=== PATIENT | male | born 1990 | race Caucasian/White ===

== ENCOUNTER 2016-04-25 07:17 | Emergency (ER) | payer OTHER ==
--- NOTE | 2016-04-25 08:07 | EDPHY ---
[id number] [id number] CHIEF COMPLAINT: "I guess this is my first full-blown experience with frostbite " HISTORY OF PRESENT ILLNESS: The patient is a 25 y/o male complaining of bilateral hand pain and redness he attributes to cold exposure over the last 36 hours. He says he was shoveling snow for work yesterday and the previous night and was outside for extended periods of time. He was wearing gloves but this is his first winter in [place] and is unsure how to manage his symptoms. He complains specifically of redness, pain, dryness, and tingling to both hands. He has not tried anything for pain other than marijuana and is specifically requesting narcotics. He denies pertinent medical history. Source: Patient - Personal History Current Tetanus/Diphtheria Vaccine: Yes Current Tetanus Diphtheria and Acellular Pertussis (TDAP): Yes - Medical/Surgical History PMH: Denies. Tetanus up-to-date. Hx Asthma: No Hx Chronic Respiratory Disease: No Hx Diabetes: No Hx Cardiac Disease: No Hx Renal Disease: No Hx Cirrhosis: No Hx Alcoholism: No Hx HIV/AIDS: No Hx Splenectomy or Spleen Trauma: No Other PMH: DENIES - Social History Smoking Status: Current every day smoker Additional Social History: From [place]. Smoker. - Physical Exam Exam: General Appearance: Alert, pleasant Skin/ext: Bilateral erythema to dorsal aspect of hands without blistering, tiny abrasions on the right 2nd/3rd MCP's; digit/wrist ROM without pain Vascular: Brisk capillary refill in both hands. Radial pulses 2+ bilaterally. Neurological: motor/sensory intact Psychiatric: Mood and affect normal Constitutional: Initial Vital Signs Temperature (C) 36.6 C 04/25/16 07:20 Heart Rate 104 H 04/25/16 07:20 Respiratory Rate 18 04/25/16 07:20 Blood Pressure 125/75 H 04/25/16 07:20 O2 Sat (%) 94 04/25/16 07:20 O2 Delivery Mode Room Air Allergies/Adverse Reactions: ketorolac tromethamine [From Toradol] Allergy (Verified 11/04/15 05:50) Home Medications: Medication Instructions Recorded Hydrocodone/APAP 5/325 [Tad 1 - 2 tab PO Q4H PRN #6 tab 04/25/16 5/325] Medical Decision Making ED Course/Re-evaluation: This is a healthy 25 y/o male presenting with pain and redness to both hands after shoveling snow in below freezing temperatures over the last 36 hours. He has bilateral hand erythema without blistering or evidence of advanced frostbite. He is neurovascularly intact. He is specifically requesting narcotics for pain relief. I've advised him to use OTC remedies for symptoms and counseled him on frostbite prevention and reinjury. He will receive a small script for Tad and was advised he will not receive narcotic refills from the ED. He's been referred to [facility] and our outpatient doctor for follow up. He agrees with this plan. - Data Points Medications Given: Discontinued Medications Acetaminophen (Tylenol) 650 mg PO EDNOW ONE Stop: 04/25/16 08:10 Last Admin: 04/25/16 08:22 Dose: 650 mg Departure - Departure Disposition: Home, Routine, Self-Care Clinical Impression: Frostbite of both hands Condition: Good Instructions: Frostbite (ED) Additional Instructions: 1. Keep extremities properly covered in the cold. Mittens work better than gloves. Avoid re-exposure to cold until your hands are healed. 2. You can try applying aloe vera and ice packs to both hands for symptom relief. 3. Use Tylenol as directed on the packaging as needed for pain. Not to exceed 1 week of use. 4. You've been given a small script of Tad to use for pain not controlled by Tylenol. Be advised the ED will not refill any narcotic prescriptions. 5. Follow up with a primary care provider for ongoing symptoms and to establish care. You've been referred to [facility] and our on-call outpatient doctor. Referrals: [facility] [Outside] - As per Instructions Reymundo Parker, [Medical Doctor] - As per Instructions Prescriptions: Hydrocodone/APAP 5/325 [Tad 5/325] 1 - 2 tab PO Q4H PRN #6 tab PRN Reason: Pain, Moderate Report Scribed for: Chelsey Bedolla Report Scribed by: Wendy Hopson Date of Report: 04/25/16 Time of Report: 07:24 Physician Review and Approval Statement: 04/25/16 07:24 Portions of this note were transcribed by a medical records tech. I personally performed a history, physical exam, medical decision making, and confirmed accuracy of information the transcribed note.
[2016-04-25] MEDS ORDERED: ACETAMINOPHEN 325 MG TAB PO ONE (08:09)
[2016-04-25 08:23] VITALS: BP 133/74; PULSE 82; RESP 16; TEMP 97.2; O2SAT 98
== END 2016-04-25 08:29 | disposition home or self-care (01) ==
LOC: EEVIPCON 07:17
DX: T33.521A Superficial frostbite of right hand, initial encounter (principal); T33.522A Superficial frostbite of left hand, initial encounter; F17.200 Nicotine dependence, unspecified, uncomplicated; X31.XXXA Exposure to excessive natural cold, initial encounter; Y92.89 Other specified places as the place of occurrence of the external cause; Y99.8 Other external cause status; Y93.89 Activity, other specified

== ENCOUNTER 2016-06-12 09:13 | Emergency (ER) | payer OTHER ==
--- NOTE | 2016-06-12 10:48 | EDPHY ---
H & P Stated Complaint: BRUSE TO BUTT AREA ...STILL BRUSED Time Seen by Provider: 06/12/16 09:29 HPI/ROS: Chief complaint: Bruise to the left buttock region History of present illness: This is a 25-year-old male who presents to the emergency department for evaluation of a bruise to his left buttock region. Patient reports 1 week ago while skateboarding he lost control and fell off onto his buttock region. He developed a large bruise. He states it has been persistent. He is concerned as it has been a week and he still has the bruising and it is still uncomfortable. He denies other associated signs or symptoms: No report of pain or trauma to other parts of the body, no paresthesias, no weakness or paralysis, no bowel or bladder dysfunction. Review of systems: A 10 point review of systems was obtained and other than described above was negative - Personal History Current Tetanus/Diphtheria Vaccine: Yes Current Tetanus Diphtheria and Acellular Pertussis (TDAP): Yes - Medical/Surgical History Hx Asthma: No Hx Chronic Respiratory Disease: No Hx Diabetes: No Hx Cardiac Disease: No Hx Renal Disease: No Hx Cirrhosis: No Hx Alcoholism: No Hx HIV/AIDS: No Hx Splenectomy or Spleen Trauma: No Other PMH: DENIES - Social History Smoking Status: Current every day smoker - Physical Exam Exam: General Appearance: Alert, nontoxic Eyes: PERRLA Respiratory: Lungs clear to auscultation bilaterally Cardiac: Regular rate and rhythm. Gastrointestinal: Soft, nondistended, nontender Neurological: Alert and oriented x4 Skin: Patient is a large hematoma to the left buttock region Musculoskeletal: Head is normocephalic, atraumatic. The spine is nontender to palpation along its entire length. Pelvis stable to palpation. Patient moving all extremities without difficulty. He is ambulating well. Constitutional: Initial Vital Signs Temperature (C) 36.8 C 06/12/16 09:20 Heart Rate 95 06/12/16 09:20 Respiratory Rate 18 06/12/16 09:20 Blood Pressure 123/61 H 06/12/16 09:20 O2 Sat (%) 95 06/12/16 09:20 O2 Delivery Mode Room Air Allergies/Adverse Reactions: ketorolac tromethamine [From Toradol] Allergy (Verified 06/12/16 09:22) Home Medications: Medication Instructions Recorded Hydrocodone/APAP 5/325 [[place] 1 tab PO Q6H #6 tab 06/12/16 5/325 (*)] Medical Decision Making - Diagnostics Imaging: Pelvis x-ray is negative ED Course/Re-evaluation: Patient seen under the supervision of my secondary supervising physician Dr. Hudson Torres. Patient presents to the emergency department for trauma to the left buttock. He has large hematoma. No evidence by history or physical exam of trauma to other parts of the body. Pelvis x-rays negative. No blood in the urine. Patient will be discharged home. Home care is discussed. He is to follow up with a primary care doctor for recheck. Return precautions are given. Patient voiced understanding and agreement with plan. Differential Diagnosis: Included but not limited to contusion, hematoma, bony fracture - Data Points Laboratory Results: 06/12/16 09:43 Urine Color YELLOW Urine Appearance CLEAR Urine pH 6.0 (5.0-7.5) Ur Specific [place] 1.026 (1.002-1.030) Urine Protein NEGATIVE (NEGATIVE) Urine Ketones NEGATIVE (NEGATIVE) Urine Blood NEGATIVE (NEGATIVE) Urine Nitrate NEGATIVE (NEGATIVE) Urine Bilirubin NEGATIVE (NEGATIVE) Urine Urobilinogen NEGATIVE EU EU (0.2-1.0) Ur Leukocyte Esterase NEGATIVE (NEGATIVE) Ur Culture Indicated? NOT INDICATED (NI) Urine Glucose NEGATIVE (NEGATIVE) Departure - Departure Disposition: Home, Routine, Self-Care Clinical Impression: Traumatic hematoma of buttock Qualifiers: Encounter type: initial encounter Qualified Code(s): S30.0XXA - Contusion of lower back and pelvis, initial encounter Condition: Good Instructions: Hematoma (ED) Additional Instructions: Follow-up with the primary care doctor for recheck Apply warm compresses to the injury multiple times daily Use ibuprofen 600 mg 3 times daily for the next 2-3 days In addition You have been prescribed [place] for pain. [place] contains Tylenol, do not take extra Tylenol/acetaminophen/Apap with it. It is sedating. If symptoms worsen or new symptoms develop return to the emergency department for recheck Referrals: NONE *PRIMARY CARE P,. [Primary Care Provider] - As per Instructions [facility],. [Clinic] - As per Instructions Gillian Espana MD [Medical Doctor] - As per Instructions Prescriptions: Hydrocodone/APAP 5/325 [[place] 5/325 (*)] 1 tab PO Q6H #6 tab
[2016-06-12 10:53] LABS: COLOR YELLOW; LEUKOCYTE ESTERASE,URINE NEGATIVE (NEGATIVE); NITRITE,URINE NEGATIVE (NEGATIVE)
[2016-06-12 11:11] VITALS: BP 129/74; PULSE 86; RESP 16; TEMP 98.6; O2SAT 96
== END 2016-06-12 11:12 | disposition home or self-care (01) ==
DX: S30.0XXA Contusion of lower back and pelvis, initial encounter (principal); F17.200 Nicotine dependence, unspecified, uncomplicated; V00.131A Fall from skateboard, initial encounter; Y99.8 Other external cause status; Y93.51 Activity, roller skating (inline) and skateboarding

== ENCOUNTER 2016-06-16 07:16 | Emergency (ER) | payer OTHER ==
[2016-06-16 07:23] VITALS: TEMP 97.7
[2016-06-16] MEDS ORDERED: OXYCODONE/APAP 5/325 TAB PO ONE (07:29)
--- NOTE | 2016-06-16 07:31 | EDPHY ---
H & P Stated Complaint: hematoma l buttock/painful is out of vicodan/seen last Time Seen by Provider: 06/16/16 07:24 - Personal History Current Tetanus/Diphtheria Vaccine: Yes - Medical/Surgical History Hx Asthma: No Hx Chronic Respiratory Disease: No Hx Diabetes: No Hx Cardiac Disease: No Hx Renal Disease: No Hx Cirrhosis: No Hx Alcoholism: No Hx HIV/AIDS: No Hx Splenectomy or Spleen Trauma: No Other PMH: DENIES - Social History Smoking Status: Current every day smoker Constitutional: Initial Vital Signs Temperature (C) 36.5 C 06/16/16 07:20 Heart Rate 83 06/16/16 07:20 Respiratory Rate 18 06/16/16 07:20 Blood Pressure 133/78 H 06/16/16 07:20 O2 Sat (%) 95 06/16/16 07:20 O2 Delivery Mode Room Air Allergies/Adverse Reactions: ketorolac tromethamine [From Toradol] Allergy (Verified 06/16/16 07:20) Home Medications: Medication Instructions Recorded Hydrocodone/APAP 5/325 [[place] 1 tab PO Q6H #6 tab 06/12/16 5/325 (*)] Cephalexin [Keflex (RX)] 500 mg PO TID #30 cap 06/16/16 oxyCODONE IR [Oxycodone Ir (*)] 5 - 10 mg PO Q6 PRN #20 tab 06/16/16 Medical Decision Making ED Course/Re-evaluation: CHIEF COMPLAINT: "I've got a hematoma on my butt" HISTORY OF PRESENT ILLNESS: The patient is a 25 y/o male complaining of a large hematoma on his left buttock secondary to a fall from his longboard 2 weeks ago. He was seen here on 06/12/16, 4 days ago, with the same complaint. A pelvis x-ray at that time was negative and he was discharged with Vicodin for pain. He returns today reporting that his pain has not improved nor has the size of the hematoma. He has used all his Vicodin and is concerned about continuing pain. He denies significant medical history; a review of his records shows he has been here previously for abscess drainage. REVIEW OF SYSTEMS: A 10 point review of systems was performed and is negative with the exception of the elements mentioned in the history of present illness. PHYSICAL EXAM: General Appearance: Alert, well hydrated, appropriate, and non-toxic appearing. Musculoskeletal: Normal active ROM of all extremities, atraumatic. Neurological: Alert, appropriate, and interactive. Skin: No rashes, good turgor, no nodules on palpation. Large tender and fluctuant mass consistent with hematoma on left buttock without evidence of infection - no erythema, warmth, or streaking. PAST MEDICAL HISTORY: Abscesses PAST SURGICAL HISTORY: Previous abscess drainage SOCIAL HISTORY: Smoker DIAGNOSTICS/PROCEDURES/CRITICAL CARE TIME: Ultrasound-guided drainage of hematoma performed by Dr. Ward, radiologist. DIFFERENTIAL DIAGNOSIS: The differential diagnosis for the patient's mass included but was not limited to hematoma, abscess, fracture, muscle contusion. MEDICAL DECISION MAKING: This is a healthy 25 y/o male presenting with a traumatic hematoma on his left buttock secondary to a fall 2 weeks ago. He was evaluated here a few days ago and received Vicodin for pain, which has been insufficient at controlling his pain. On exam, he has a large fluctuant mass on his left buttock without evidence of infection. Consulted with Dr. Ward, who will perform an ultrasound-guided needle aspiration of the hematoma. Aspiration was successful and drained approximately 160mL bloody fluid. Patient will be discharged with OxyIR and and prophylactic Keflex. He's been referred to a PCP for follow up if needed. He is comfortable with this plan. - Data Points Medications Given: Discontinued Medications Oxycodone/Acetaminophen (Percocet 5/325) 2 tab PO EDNOW ONE Stop: 06/16/16 07:30 Last Admin: 06/16/16 07:57 Dose: 2 tab Departure - Departure Disposition: Home, Routine, Self-Care Clinical Impression: Traumatic hematoma of buttock Qualifiers: Encounter type: initial encounter Qualified Code(s): S30.0XXA - Contusion of lower back and pelvis, initial encounter Condition: Good Instructions: Incision and Drainage (ED), Hematoma (ED) Additional Instructions: 1. Take 600mg ibuprofen every 6-8 hours as needed for pain and inflammation over the 4-7 days. 2. Use OxyIR as prescribed when needed for pain not controlled by ibuprofen. 3. Take Keflex as prescribed for infection prophylaxis. Be sure to complete the entire prescription. 4. Follow up with your primary care provider for symptoms not improved over the next week. 5. Return to the ED for severe pain, dramatic increase in redness or warmth, if red streaking appears around the site, if you develop fever, or other worsening of condition. Referrals: [facility],. [Clinic] - As per Instructions [facility],. [Clinic] - As per Instructions Prescriptions: Cephalexin [Keflex (RX)] 500 mg PO TID #30 cap oxyCODONE IR [Oxycodone Ir (*)] 5 - 10 mg PO Q6 PRN #20 tab PRN Reason: Pain, Severe
[2016-06-16] MEDS ORDERED: NA BICARBONATE 50 MEQ/50 ML VIAL ONE (08:53)
[2016-06-16] MEDS ORDERED: LIDOCAINE 1% 30 ML SDV ONE (08:53)
[2016-06-16 09:38] VITALS: BP 131/78; PULSE 78; RESP 16; O2SAT 96
== END 2016-06-16 09:38 | disposition home or self-care (01) ==
DX: S30.0XXD Contusion of lower back and pelvis, subsequent encounter (principal); F17.200 Nicotine dependence, unspecified, uncomplicated; V00.131D Fall from skateboard, subsequent encounter

== ENCOUNTER 2016-06-17 06:55 | Emergency (ER) | payer OTHER ==
[2016-06-17] MEDS ORDERED: NS 1,000 ML IV ONE ×2 (07:18→11:24)
[2016-06-17] MEDS ORDERED: HYDROmorphONE/DILAUDID 1 MG/ML SYR IVP ONE (07:18)
--- NOTE | 2016-06-17 07:23 | EDPHY ---
H & P Stated Complaint: Had hematoma drained yesterday, now flank pain, vomiting - Personal History Current Tetanus/Diphtheria Vaccine: Yes - Medical/Surgical History Hx Asthma: No Hx Chronic Respiratory Disease: No Hx Diabetes: No Hx Cardiac Disease: No Hx Renal Disease: No Hx Cirrhosis: No Hx Alcoholism: No Hx HIV/AIDS: No Hx Splenectomy or Spleen Trauma: No Other PMH: PSHx: DENIES. PMHx: denies - Social History Smoking Status: Current every day smoker Constitutional: Initial Vital Signs Temperature (C) 36.4 C 06/17/16 06:56 Heart Rate 97 06/17/16 06:56 Respiratory Rate 16 06/17/16 06:56 Blood Pressure 127/73 H 06/17/16 06:56 O2 Sat (%) 92 06/17/16 06:56 O2 Delivery Mode Room Air Allergies/Adverse Reactions: ketorolac tromethamine [From Toradol] Allergy (Verified 06/16/16 07:20) Home Medications: Medication Instructions Recorded Hydrocodone/APAP 5/325 [[place] 1 tab PO Q6H #6 tab 06/12/16 5/325 (*)] Cephalexin [Keflex (RX)] 500 mg PO TID #30 cap 06/16/16 oxyCODONE IR [Oxycodone Ir (*)] 5 - 10 mg PO Q6 PRN #20 tab 06/16/16 Medical Decision Making ED Course/Re-evaluation: CHIEF COMPLAINT: Flank pain, vomiting, weakness. HISTORY OF PRESENT ILLNESS: The patient is a 25-year-old male presenting with flank pain, vomiting, and weakness that began at 0500 this morning (2.5 hours). The flank pain radiates around to his groin. The vomit is described as reddish- brown. He was in the ED yesterday and had a large buttock hematoma drained that he received from a longboarding accident 10 days ago. He was discharged on Keflex and Oxycodone. He took 2 Oxycodone last night for pain but has not started the Keflex. Today he admits associated oliguria, bloody gums, and epistaxis earlier today. He has a history of similar symptoms years ago after a bout of flu. REVIEW OF SYSTEMS: A 10 point review of systems was performed and is negative with the exception of the elements mentioned in the history of present illness. PHYSICAL EXAM: HR, BP, O2 Sat, RR. Temp noted General Appearance: Alert, well hydrated, appropriate, and non-toxic appearing. Head: Atraumatic without scalp tenderness or obvious injury Eyes: Pupils equal, round, reactive to light and accommodation, EOMI, no trauma , no injection. Ears: Clear bilaterally, no perforation, normal landmarks Nose: Atraumatic, no rhinorrhea, clear. Throat: There is no erythema or exudates, no lesions, normal tonsils, mucus membranes moist. Neck: Supple, 2+ carotid upstroke, nontender, no lymphadenopathy. Respiratory: No retractions, no distress, no wheezes, and no accessory muscle use. Lungs are clear to auscultation bilaterally. Cardiovascular: Regular rate and rhythm, no murmurs, rubs, or gallops. Bilateral carotid, radial, dorsalis pedis, and posterior tibial pulses intact. Good capillary refill all extremities. Gastrointestinal: Abdomen is soft, non-distended, no masses, no rebound, no guarding, no peritoneal signs. Bilateral upper quadrant tenderness. Musculoskeletal: Normal active ROM of all extremities, atraumatic. Bilateral CVA tenderness. Neurological: Alert, appropriate, and interactive. The patient has normal DTRs and non-focal cranial nerves, motor, sensory, and cerebellar exam. Skin: No rashes, good turgor, no nodules on palpation. Past medical history:Abscess. Past surgical history:Abscess drainage. Family history:Non-contributory. Social history:Cigarette and marijuana smoker. DIAGNOSTICS/PROCEDURES/CRITICAL CARE TIME: Study: CT of the abdomen. Indication: Pain. Results: 1. There is a 7.3 x 1.3 x 9.2 cm seroma involving the subcutaneous tissues of the left buttock. 2. Features consistent with a small bowel enteritis. 3. Normal appearance of the retrocecal appendix. The study was read by the radiologist, Dr. Le. I viewed the images myself on the PACS system. DIFFERENTIAL DIAGNOSIS: The differential diagnosis for the patient's flank pain included but was not limited to musculoskeletal causes, kidney stone, pyelonephritis, shingles, diverticulitis, vasculitis, appendicitis, and aortic aneurysm. MEDICAL DECISION MAKIN-year-old male presents with lateral abdominal pain. I saw this patient yesterday and drained a large hematoma on his buttock that he received while longboarding. I discharged him home with Keflex and Oxycodone. He presents today with pain that is lateral to his flanks. I will rule out vomiting due to medication reaction. An IV was established and labs ordered. 1L IV saline administered for hydration along with 0.5mg IV Dilaudid for pain. On exam he is quite tender in the abdomen so an abdominal CT was ordered. Despite bloody gums and epistaxis, the patient's CBC shows only a small left shift. WBC mildly elevated at 13. I think this most likely represents overlying gastroenteritis and dehydration. 0920: CT reported to me by Dr. Le as enteritis. 1111: Patient still nauseated and in pain. Phenergan 12.5mg IV administered. - Data Points Laboratory Results: Laboratory Results 06/17/16 07:30 06/17/16 07:30 06/17/16 06/17/16 06/17/16 07:30 07:30 07:00 WBC 13.11 10^3/uL H 10^3/uL (3.80-9.50) RBC 4.74 10^6/uL 10^6/uL (4.40-6.38) Hgb 15.5 g/dL g/dL (13.7-17.5) Hct 44.9 % % (40.0-51.0) MCV 94.7 fL fL (81.5-99.8) MCH 32.7 pg pg (27.9-34.1) MCHC 34.5 g/dL g/dL (32.4-36.7) RDW 14.2 % % (11.5-15.2) Plt Count 365 10^3/uL 10^3/uL (150-400) MPV 9.6 fL fL (8.7-11.7) Neut % (Auto) 83.0 % H % (39.3-74.2) Lymph % (Auto) 10.5 % L % (15.0-45.0) [place] % (Auto) 5.2 % % (4.5-13.0) Eos % (Auto) 0.5 % L % (0.6-7.6) Baso % (Auto) 0.5 % % (0.3-1.7) Nucleat RBC Rel Count 0.0 % % (0.0-0.2) Absolute Neuts (auto) 10.87 10^3/uL H 10^3/uL (1.70-6.50) Absolute Lymphs (auto) 1.38 10^3/uL 10^3/uL (1.00-3.00) Absolute Monos (auto) 0.68 10^3/uL 10^3/uL (0.30-0.80) Absolute Eos (auto) 0.07 10^3/uL 10^3/uL (0.03-0.40) Absolute Basos (auto) 0.07 10^3/uL 10^3/uL (0.02-0.10) Absolute Nucleated RBC 0.00 10^3/uL 10^3/uL (0-0.01) Immature Gran % 0.3 % % (0.0-1.1) Immature Gran # 0.04 10^3/uL 10^3/uL (0.00-0.10) Sodium 143 mEq/L mEq/L (134-144) Potassium 4.5 mEq/L mEq/L (3.5-5.2) Chloride 108 mEq/L mEq/L (97-110) Carbon Dioxide 22 mEq/l mEq/l (22-31) Anion Gap 13 mEq/L mEq/L (8-16) BUN 14 mg/dL mg/dL (7-23) Creatinine 0.7 mg/dL mg/dL (0.7-1.3) Estimated GFR > 60 Glucose 90 mg/dL mg/dL (70-100) Calcium 9.4 mg/dL mg/dL (8.5-10.4) Total Bilirubin 0.5 mg/dL mg/dL (0.1-1.4) Conjugated Bilirubin 0.3 mg/dL mg/dL (0.0-0.5) Unconjugated Bilirubin 0.2 mg/dL mg/dL (0.0-1.1) AST 21 IU/L IU/L (17-59) ALT 31 IU/L IU/L (21-72) Alkaline Phosphatase 68 IU/L IU/L (38-126) Total Protein 7.4 g/dL g/dL (6.3-8.2) Albumin 4.2 g/dL g/dL (3.5-5.0) Lipase 68.0 IU/L IU/L (23-300) Urine Color YELLOW Urine Appearance CLEAR Urine pH 6.0 (5.0-7.5) Ur Specific [place] 1.017 (1.002-1.030) Urine Protein NEGATIVE (NEGATIVE) Urine Ketones NEGATIVE (NEGATIVE) Urine Blood NEGATIVE (NEGATIVE) Urine Nitrate NEGATIVE (NEGATIVE) Urine Bilirubin NEGATIVE (NEGATIVE) Urine Urobilinogen NEGATIVE EU EU (0.2-1.0) Ur Leukocyte Esterase NEGATIVE (NEGATIVE) Ur Culture Indicated? NOT INDICATED (NI) Urine Glucose NEGATIVE (NEGATIVE) Medications Given: Discontinued Medications Hydromorphone HCl (Dilaudid) 0.5 mg IVP EDNOW ONE Stop: 06/17/16 07:19 Last Admin: 06/17/16 07:50 Dose: 0.5 mg Sodium Chloride (Ns) 1,000 mls @ 0 mls/hr IV ONCE ONE PRN Reason: Wide Open Stop: 06/17/16 07:19 Last Admin: 06/17/16 07:50 Dose: 1,000 mls Sodium Chloride (Ns) 1,000 mls @ 0 mls/hr IV ONCE ONE PRN Reason: Wide Open Stop: 06/17/16 11:25 Last Admin: 06/17/16 11:31 Dose: 1,000 mls Ondansetron HCl (Zofran) 4 mg IVP EDNOW ONE Stop: 06/17/16 07:43 Last Admin: 06/17/16 07:51 Dose: 4 mg Ondansetron HCl (Zofran Odt 4 Mg Prepack#2) 1 btl TAKEHOME EDNOW ONE Stop: 06/17/16 12:39 Last Admin: 06/17/16 12:54 Dose: 1 btl Promethazine HCl (Phenergan) 12.5 mg IVP ONCE ONE Stop: 06/17/16 11:25 Last Admin: 06/17/16 11:32 Dose: 12.5 mg Departure - Departure Disposition: Home, Routine, Self-Care Clinical Impression: Gastroenteritis Condition: Good Instructions: Ondansetron (By mouth), Gastroenteritis (ED) Additional Instructions: Drink only clear fluids for the next 24 hours. Increase diet as tolerable. Follow up with your primary care provider in the next 3-4 days if symptoms are not improving. If you need a primary care provider you have been given the telephone number of the on-call primary care provider. Return to the emergency department if you experience any serious worsening of condition. Referrals: Cheyenne Maza MD [Medical Doctor] - As per Instructions Report Scribed for: Rey Patterson Report Scribed by: Saman Fernandez Date of Report: 06/17/16 Time of Report: 07:23
[2016-06-17 07:39] LABS: % IMMATURE GRANULYOCYTES 0.3 % (0.0-1.1); ABSOLUTE IMMATURE GRANULOCYTES 0.04 10^3/uL (0.00-0.10); ADD DIFF? NO; ADD MORPH? NO; ADD SCAN? NO; ATYPICAL LYMPHOCYTE FLAG 10 (0-99); FRAGMENT RBC FLAG 0 (0-99); HEMATOCRIT 44.9 % (40.0-51.0); HEMOGLOBIN 15.5 g/dL (13.7-17.5); LEFT SHIFT FLG 0 (0-99); LIPEMIA HEMOLYSIS FLAG 90 (0-99); MEAN CELL HEMOGLOBIN 32.7 pg (27.9-34.1); MEAN CELL HEMOGLOBIN CONCENTR. 34.5 g/dL (32.4-36.7); MEAN CELL VOLUME 94.7 fL (81.5-99.8); MEAN PLATELET VOLUME 9.6 fL (8.7-11.7); PLATELET CLUMPS FLAG 10 (0-99); PLATELET COUNT 365 10^3/uL (150-400); RED BLOOD CELL COUNT 4.74 10^6/uL (4.40-6.38); RED CELL DISTRIBUTION WIDTH 14.2 % (11.5-15.2)
[2016-06-17 07:41] LABS: COLOR YELLOW; LEUKOCYTE ESTERASE,URINE NEGATIVE (NEGATIVE); NITRITE,URINE NEGATIVE (NEGATIVE)
[2016-06-17] MEDS ORDERED: ONDANSETRON 4 MG/2 ML VIAL IVP ONE (07:42)
[2016-06-17 08:03] LABS: ALANINE AMINOTRANSFERASE 31 IU/L (21-72); ALBUMIN 4.2 g/dL (3.5-5.0); ALKALINE PHOSPHATASE 68 IU/L (38-126); ANION GAP 13 mEq/L (8-16); ASPARTATE AMINOTRANSFERASE 21 IU/L (17-59); BILIRUBIN,TOTAL 0.5 mg/dL (0.1-1.4); BILIRUBIN-CONJUGATED 0.3 mg/dL (0.0-0.5); BILIRUBIN-UNCONJUGATED 0.2 mg/dL (0.0-1.1); CALCIUM 9.4 mg/dL (8.5-10.4); CARBON DIOXIDE 22 mEq/l (22-31); CHLORIDE 108 mEq/L (97-110); CREATININE 0.7 mg/dL (0.7-1.3); GLOMERULAR FILTRATION RATE > 60; GLUCOSE 90 mg/dL (70-100); POTASSIUM 4.5 mEq/L (3.5-5.2); SODIUM 143 mEq/L (134-144); TOTAL PROTEIN 7.4 g/dL (6.3-8.2)
[2016-06-17] MEDS ORDERED: IOPAMIDOL (ISOVUE-300) 100 ML BTL IV ONE (08:54)
[2016-06-17] MEDS ORDERED: PROMETHAZINE HCL 25 MG/ML INJ IVP ONE (11:24)
[2016-06-17] MEDS ORDERED: ONDANSETRON 4MG PREPACK#2 BTL TAKEHOME ONE (12:38)
[2016-06-17 13:20] VITALS: BP 128/78; PULSE 82; RESP 14; TEMP 97.7; O2SAT 97
== END 2016-06-17 13:19 | disposition home or self-care (01) ==
DX: K52.9 Noninfective gastroenteritis and colitis, unspecified (principal); F17.200 Nicotine dependence, unspecified, uncomplicated
CPT/HCPCS: 96374; J1170; J2405; J2550; Q9967

== ENCOUNTER 2016-07-13 19:37 | Emergency (ER) | payer SELFPAY ==
[2016-07-13 19:55] VITALS: BP 146/89; PULSE 102; RESP 18; TEMP 99; O2SAT 97
--- NOTE | 2016-07-13 20:17 | EDPHY ---
H & P Stated Complaint: sore throat and fevers for 4 days. - Personal History Current Tetanus Diphtheria and Acellular Pertussis (TDAP): Unsure - Medical/Surgical History Hx Asthma: No Hx Chronic Respiratory Disease: No Hx Diabetes: No Hx Cardiac Disease: No Hx Renal Disease: No Hx Cirrhosis: No Hx Alcoholism: No Hx HIV/AIDS: No Hx Splenectomy or Spleen Trauma: No Other PMH: PSHx: DENIES. PMHx: denies - Social History Smoking Status: Current every day smoker Time Seen by Provider: 07/13/16 19:59 HPI/ROS: CHIEF COMPLAINT: Sore throat x3 days HISTORY OF PRESENT ILLNESS: 25-year-old immunocompetent male complaining of 3 days of sore throat, tonsillar enlargement and exudate. No trismus no drooling. No change in voice. No fever or chills. No nuchal rigidity. No chest pain. No back pain. No abdominal pain. No fever or chills. No rash. No testicle pain. PRIMARY CARE PROVIDER:[facility] REVIEW OF SYSTEMS: A ten point review of systems was performed and is negative with the exception of the items mentioned in the HPI PAST MEDICAL & SURGICAL HISTORY: History of psychiatric illness SOCIAL HISTORY:daily smoker PHYSICAL EXAM (Prior to examination, patient consented to physical exam, hands were washed and my usual and customary physical exam procedures followed) 1) GENERAL: Well-developed, well-nourished, alert and oriented. Appears to be in no acute distress. 2) HEAD: Normocephalic, atraumatic 3) HEENT: Pupils equal, round, reactive to light bilaterally. Sclera anicteric. Oropharynx: No trismus no drooling, bilateral tonsils are symmetrical, they are enlarged with white exudate. No pointing of the uvula. No hot potato voice. No evidence of peritonsillar retropharyngeal abscess. Ears bilaterally with normal tympanic membranes. 4) NECK: Full range of motion, no meningeal signs. No adenopathy. 5) LUNGS: Clear auscultation bilaterally, no wheezes, no rhonchi, no retractions. 6) HEART: Regular rate and rhythm, no murmur, no heave, no gallop. 7) ABDOMEN: No guarding, no rebound, no focal tenderness, negative McBurney's, negative Avila's, negative Rovsing's, negative peritoneal sign, 8) MUSCULOSKELETAL: Moving all extremities, no focal areas of tenderness, no obvious trauma. No peripheral edema or discoloration. 9) BACK: No CVA tenderness. 10) SKIN: No rash, no petechiae. 11) Psychiatric: Patient is oriented X 3, there is no agitation. DIFFERENTIAL DIAGNOSIS: no particular include but limited to peritonsillar abscess, strep pharyngitis, mononucleosis, meningitis (Ezio Beckham) Constitutional: Initial Vital Signs Temperature (C) 37.2 C 07/13/16 19:44 Heart Rate 102 H 07/13/16 19:44 Respiratory Rate 18 07/13/16 19:44 Blood Pressure 146/89 H 07/13/16 19:44 O2 Sat (%) 97 07/13/16 19:44 O2 Delivery Mode Room Air Allergies/Adverse Reactions: ketorolac tromethamine [From Toradol] Allergy (Verified 06/16/16 07:20) Home Medications: Medication Instructions Recorded Hydrocodone/APAP 5/325 [[place] 1 tab PO Q6H #6 tab 06/12/16 5/325 (*)] Cephalexin [Keflex (RX)] 500 mg PO TID #30 cap 06/16/16 oxyCODONE IR [Oxycodone Ir (*)] 5 - 10 mg PO Q6 PRN #20 tab 06/16/16 Amoxicillin/Clavulanate Pot 875 mg PO BID #14 tab 07/13/16 [Augmentin 875 mg tab] methylPREDNISolone [Medrol Dose 4 mg PO DAILY #1 ea 07/13/16 David] Medical Decision Making ED Course/Re-evaluation: After examining the patient, high clinical suspicion for strep pharyngitis. Recommended empiric treatment.. Also recommended Medrol Dosepak. Specifically inquired with the has history of mental health disease or history of adverse/ allergic reaction to steroids and he denies this. Usual and customary pharyngitis precautions and instructions provided. (Ezio Beckham) I did not see this patient while he was in the emergency department. However his care was discussed with the PA while the patient was in the department. I agree with treatment plan and management (Anatoliy Shore) - Data Points Medications Given: Discontinued Medications Oxycodone/Acetaminophen (Percocet 5/325mg Prepack#4) 1 btl TAKETHERESA LUISNOW ONE Stop: 07/13/16 20:25 Last Admin: 07/13/16 20:27 Dose: 1 btl Departure - Departure Disposition: Home, Routine, Self-Care Clinical Impression: Pharyngitis Qualifiers: Pharyngitis/tonsillitis etiology: streptococcus Qualified Code(s): J02.0 - Streptococcal pharyngitis Condition: Good Instructions: Pharyngitis (ED) Additional Instructions: Return to the ER immediately if you cannot swallow, have drooling, fevers, neck stiffness, cannot open your jaw, or any other symptoms that concern you. Referrals: Nicole Morales MD [Medical Doctor] - 2-3 days, call for appt. Prescriptions: Amoxicillin/Clavulanate Pot [Augmentin 875 mg tab] 875 mg PO BID #14 tab methylPREDNISolone [Medrol Dose David] 4 mg PO DAILY #1 ea
[2016-07-13] MEDS ORDERED: OXYCODONE/APAP 5/325MG PREPACK#4 BTL TAKEHOME ONE (20:24)
== END 2016-07-13 20:30 | disposition home or self-care (01) ==
DX: J02.0 Streptococcal pharyngitis (principal); F17.200 Nicotine dependence, unspecified, uncomplicated

== ENCOUNTER 2017-02-06 11:32 | Emergency (ER) | payer SELFPAY ==
[2017-02-06 11:36] VITALS: BP 140/79; PULSE 92; RESP 18; TEMP 98.1; O2SAT 96
--- NOTE | 2017-02-06 13:03 | EDPHY ---
H & P Stated Complaint: lump on left hand - for 1 week. Time Seen by Provider: 02/06/17 13:02 - Personal History Current Tetanus Diphtheria and Acellular Pertussis (TDAP): Yes - Medical/Surgical History Hx Asthma: No Hx Chronic Respiratory Disease: No Hx Diabetes: No Hx Cardiac Disease: No Hx Renal Disease: No Hx Cirrhosis: No Hx Alcoholism: No Hx HIV/AIDS: No Hx Splenectomy or Spleen Trauma: No Other PMH: PSHx: DENIES. PMHx: denies - Social History Smoking Status: Current every day smoker Constitutional: Initial Vital Signs Temperature (C) 36.7 C 02/06/17 11:33 Heart Rate 92 02/06/17 11:33 Respiratory Rate 18 02/06/17 11:33 Blood Pressure 140/79 H 02/06/17 11:33 O2 Sat (%) 96 02/06/17 11:33 O2 Delivery Mode Room Air Allergies/Adverse Reactions: ketorolac tromethamine [From Toradol] Allergy (Verified 06/16/16 07:20) Home Medications: Medication Instructions Recorded Hydrocodone/APAP 5/325 [[place] 1 tab PO Q6H #6 tab 06/12/16 5/325 (*)] Cephalexin [Keflex (RX)] 500 mg PO TID #30 cap 06/16/16 oxyCODONE IR [Oxycodone Ir (*)] 5 - 10 mg PO Q6 PRN #20 tab 06/16/16 Amoxicillin/Clavulanate Pot 875 mg PO BID #14 tab 07/13/16 [Augmentin 875 mg tab] methylPREDNISolone [Medrol Dose 4 mg PO DAILY #1 ea 07/13/16 David] Medical Decision Making ED Course/Re-evaluation: CHIEF COMPLAINT: Left hand lump HISTORY OF PRESENT ILLNESS: The patient is a 26 y/o male complaining of a lump on the dorsum of his left hand that appeared one week ago. He believed it was a wart and applied salicylic acid preparation to it for the last 3 days. It has grown in size since that time. He has mild pain with pressure of the site. No fever or other systemic symptoms. He is normally healthy. REVIEW OF SYSTEMS: A 10 point review of systems was performed and is negative with the exception of the elements mentioned in the history of present illness. PHYSICAL EXAM: HR, BP, O2 Sat, RR. Temp noted General Appearance: Alert, well hydrated, appropriate, and non-toxic appearing. Head: Atraumatic without scalp tenderness or obvious injury Throat: Mucus membranes moist. Neck: Supple Respiratory: No respiratory distress Cardiovascular: Left radial pulses intact. Good capillary refill all extremities. Musculoskeletal: Normal active ROM of all extremities, atraumatic. Neurological: Alert, appropriate, and interactive. Nonfocal neuro exam. Skin: Sloughing white skin overlying wart on dorsum of left hand. No rashes, good turgor, no nodules on palpation. Past medical history: Denies Past surgical history: Denies Family history: Noncontributory Social history: Employed. Lives in [place]. Single. DIFFERENTIAL DIAGNOSIS: The differential diagnosis for the patient's symptoms included but was not limited to wart, herpes, contact dermatitis, viral syndrome. MEDICAL DECISION MAKING: This is a healthy 26 y/o male who presents with a wart on his left hand that appeared one week ago. He has been treating it with OTC applications of salicylic acid and this appears to be working well on my examination. No further intervention indicated. Recommended follow up with dermatology as needed. Return precautions discussed. Departure - Departure Disposition: Home, Routine, Self-Care Clinical Impression: Wart Qualifiers: Viral wart type: other viral wart Qualified Code(s): B07.8 - Other viral warts Condition: Good Instructions: Common Wart (ED) Additional Instructions: Continue standard wart treatment. Follow up with a tray server for unimproved symptoms over the next week. Return to the ED for severe pain, dramatic increase in redness or swelling, fever, or other worsening of condition. Referrals: Mary Manuel MD [Medical Doctor] - As per Instructions Stand Alone Forms: Statement of Treatment Report Scribed for: Rey Patterson Report Scribed by: Wendy Hopson Date of Report: 02/06/17 Time of Report: 13:21
== END 2017-02-06 13:32 | disposition home or self-care (01) ==
DX: B07.8 Other viral warts (principal); F17.200 Nicotine dependence, unspecified, uncomplicated

== ENCOUNTER 2017-03-11 11:52 | Emergency (ER) | payer SELFPAY ==
[2017-03-11 12:06] VITALS: RESP 16; TEMP 98.1
[2017-03-11] MEDS ORDERED: TDAP ADULT 0.5 ML INJ (BOOSTRIX) IM ONE (12:40)
[2017-03-11] MEDS ORDERED: LET GEL TOPICAL 1 EA SYR TP ONE ×2 (12:41→12:42)
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
[2017-03-11 14:02] VITALS: BP 132/87; PULSE 88; O2SAT 96
== END 2017-03-11 14:01 | disposition home or self-care (01) ==
DX: S61.411A Laceration without foreign body of right hand, initial encounter (principal); F17.200 Nicotine dependence, unspecified, uncomplicated; Z23 Encounter for immunization; W26.0XXA Contact with knife, initial encounter